=== PATIENT | female | born 1985 | race Caucasian/White ===

== ENCOUNTER 2016-11-08 09:14 | Emergency (ER) ==
[2016-11-08 09:18] VITALS: BP 174/111; TEMP 97.9; BMI 37.2
[2016-11-08] MEDS ORDERED: DUONEB NEB STA (09:24)
[2016-11-08] MEDS ORDERED: DECADRON 4 MG/ML SDV IM STA (09:24)
--- NOTE | 2016-11-08 09:29 | ED.PDOC ---
General ED Provider: Dr. PRATIBHA SANCHEZ-ER Chief Complaint: Cough Stated Complaint: my sinuses are draining and i am coughing Time Seen by Physician: 09:15 Mode of Arrival: Walk-In Information Source: Patient Exam Limitations: No limitations Primary Care Provider: MELQUIADES TEAGUE Nursing and Triage Documentation Reviewed and Agree: Yes Respiratory Complaint Exam - Respiratory Complaint/Exam Onset/Duration: 3 days Symptoms Are: Still present Timing: Constant Initial Severity: Mild Current Severity: Mild Location: Nose, Chest Character: Reports: Productive cough Aggravating: Reports: URI Alleviating: Reports: None Associated Signs and Symptoms: Reports: Wheezing, URI, Nasal congestion, Sinus discomfort, Sore throat. Denies: Rapid breathing, Dyspnea, Fever, Chills, Chest pain, Pleuritic chest pain, Hemoptysis, Dizziness, Calf pain, Calf swelling, Edema, Hoarseness, Vomiting, Weight loss, Decreased oral intake, Increased thirst, Increased appetite, Increased urination History of Healthcare-Acquired Pneumonia: No Related Surgical History: Reports: None Pulmonary Embolism Risk Factors: None Cardiac Risk Factors: Reports: None Pseudomonas Risk Factors: Reports: None Tuberculosis Risk Factors: Reports: None Status Asthmaticus Risk Factors: Reports: None Home Oxygen Use: No Recent Stress Test: No Recent Echo/LV Function: No Current Antibiotic Use: No Current Asthma Medication Use: No Respiratory Distress: None Inadequate Respiratory Effort: No Dysphagia Present: No Stridor Present: No JVD Present: No Accessory Muscle Use: No Retractions: Not Present Diminished Breath Sounds: No Sinus Tenderness: Maxillary Grunting Respirations: No Kussmaul Respirations: No Differential Diagnoses: Bronchitis, Sinusitis Review of Systems - Review Of Systems Constitutional: Reports: No symptoms Eyes: Reports: No symptoms Ears, Nose, Mouth, Throat: Reports: Nose discharge Respiratory: Reports: Cough Cardiac: Reports: No symptoms GI: Reports: No symptoms : Reports: No symptoms Musculoskeletal: Reports: No symptoms Skin: Reports: No symptoms Neurological: Reports: No symptoms Endocrine: Reports: No symptoms Hematologic/Lymphatic: Reports: No symptoms All Other Systems: Reviewed and Negative Past Medical History - Past Medical History Previously Healthy: Yes Endocrine: Reports: None Cardiovascular: Reports: None Respiratory: Reports: None Hematological: Reports: None Gastrointestinal: Reports: None Genitourinary: Reports: None Neuro/Psych: Reports: None Musculoskeletal: Reports: None Cancer: Reports: None Last Menstrual Period: last month - Surgical History General Surgical History: Reports: Tubal ligation, Cholecystectomy, Tonsillectomy - Family History Family History: Reports: None - Social History Smoking Status: Current some day smoker, Light tobacco smoker Hx Substance Use: No Alcohol Screening: None Lives: With family Physical Exam - Physical Exam Appearance: Well-appearing, No pain distress, Well-nourished Eyes: EILEEN, EOMI, Conjunctiva clear ENT: Rhinorrhea Neck: Supple Respiratory: Rhonchi Cardiovascular: RRR, Pulses normal, No rub, No murmur GI/: Soft, Nontender, No masses, Bowel sounds normal, No Organomegaly Musculoskeletal: Normal strength, ROM intact, No edema, No calf tenderness Skin: Warm, Dry, Normal color Neurological: Sensation intact, Motor intact, Reflexes intact, Cranial nerves intact, Alert, Oriented Psychiatric: Affect appropriate, Mood appropriate Interpretation - Radiology Interpretation Radiology Interpretation By: ED Physician Radiology Results: Negative Exam Interpreted: CXR Re-Evaluation - Re-Evaluation Time of Re-Evaluation: 09:37 Status: Improved Vital Signs Stable: Yes Pain Level: 0 Appearance: NAD Lungs: Clear Skin: Warm and Dry Neuro: Alert and Oriented X3 CV: RRR Critical Care Note - Critical Care Note Total Time (mins): 0 Course - Course Orders, Labs, Meds: Orders Category Date Time Status NEBULIZER TREATMENT Stat CARDIO 11/08/16 09:24 Ordered Dexamethasone 4 mg/ml Inj [Decadron 4 mg/ml Sdv] MEDS 11/08/16 09:24 Discontinued 4 mg IM ONCE STA Ipratropium/Albuterol Neb [Duoneb] MEDS 11/08/16 09:24 Discontinued 1 vial NEB ONCE STA CXR [CHEST, 2 VIEWS PA & LAT] Stat RADS 11/08/16 09:24 Taken Medications Discontinued Medications Generic Name Dose Route Start Last Admin Trade Name Freq PRN Reason Stop Dose Admin Albuterol/Ipratropium 1 vial 11/08/16 09:24 Duoneb NEB 11/08/16 09:25 ONCE STA Dexamethasone Sodium Phosphate 4 mg 11/08/16 09:24 11/08/16 09:33 Decadron 4 Mg/Ml Sdv IM 11/08/16 09:25 4 mg ONCE STA Administration Vital Signs: Temp Pulse Resp BP Pulse Ox 11/08/16 09:14 97.9 F 80 20 174/111 H 98 Departure - Departure Time of Disposition: 09:40 Disposition: HOME SELF-CARE Discharge Problem: Bronchitis Sinusitis Qualifiers: Sinusitis location: unspecified location Chronicity: acute Recurrence: not specified as recurrent Qualifier Code: (J01.90) Acute sinusitis, unspecified Instructions: Sinusitis (ED) Condition: Good Pt referred to PMD for follow-up: Yes Additional Instructions: augmentin 875mg bid x 10 days--medrol dose pack==f/u with pcsp Allergies/Adverse Reactions: Allergies codeine [Codeine] Adverse Reaction (Verified 11/08/16 09:18) Vomiting Sulfa (Sulfonamide Antibiotics) Adverse Reaction (Verified 11/08/16 09:18) Anaphylaxis olives Allergy (Severe, Uncoded 10/02/15 23:21) rash, N/V, SWELLING Home Medications: Ambulatory Orders Fexofenadine HCl [Ange Allergy] 60 mg PO DAILY PRN 12/25/15 Levonorgestrel-Ethin Estradiol [Quasense 0.15-0.03 Mg Tablet] 1 each PO d Disposition Discussed With: Patient, Family
--- NOTE | 2016-11-08 09:45 | DI ---
EXAM: Chest two view, frontal and lateral views. HISTORY: Cough. COMPARISON: 01/24/2012. FINDINGS: The heart size is normal. There is no pulmonary vascular congestion. The lungs are jason r. No pleural effusion or pneumothorax is seen. No acute osseous abnormality identified. Since prior study, there has been no significant interval change. IMPRESSION: No acute cardiopulmonary process.
== END 2016-11-08 09:49 | disposition home or self-care (01) ==
LOC: ED 09:14
DX: J40 Bronchitis, not specified as acute or chronic (principal); J01.90 Acute sinusitis, unspecified; F17.210 Nicotine dependence, cigarettes, uncomplicated
CPT/HCPCS: 94640; 96372; 99282

== ENCOUNTER 2017-02-01 10:06 | Outpatient (CLI) ==
[2013-04-16 02:38] VITALS: TEMP 97.8
[2017-02-01 10:27] LABS: BASOPHILS # (AUTO) 0.1 K/uL (0-0.2); EOSINOPHILS # (AUTO) 0.2 K/ul (0.0-0.7); EOSINOPHILS % (AUTO) 2.1 % (0.0-7.0); HEMATOCRIT 35.9 % (37.0-47.0); HEMOGLOBIN 12.1 g/dl (12.0-16.0); IMMATURE GRANULOCYTE % (AUTO) 0.2 % (0.0-5.0); LYMPHOCYTES # (AUTO) 2.2 K/uL (0.60-3.4); LYMPHOCYTES % (AUTO) 27.1 (10.0-50.0); MEAN CORPUSCULAR HEMOGLOBIN 30.1 pg (27.0-31.0); MEAN CORPUSCULAR HGB CONC 33.7 (31.8-35.4); MEAN CORPUSCULAR VOLUME 89.3 fl (81.0-99.0); MONOCYTES # (AUTO) 0.5 K/uL (0.4-2.0); NEUTROPHILS # (AUTO) 5.2 K/ul (2.0-6.9); NEUTROPHILS % (AUTO) 63.6; PLATELET COUNT 240 10^3/uL (140-440); RED BLOOD COUNT 4.02 10^6/ul (4.20-5.40); WHITE BLOOD COUNT 8.12 K/ul (4.6-10.2)
[2017-02-01 10:46] LABS: ALBUMIN 3.5 g/dL (3.4-5.0); ALBUMIN/GLOBULIN RATIO 1.06; ANION GAP 11.2; BILIRUBIN,TOTAL 0.35 mg/dL (0.00-1.20); BUN/CREATININE RATIO 18.42; CALCIUM 8.6 mg/dL (8.2-10.2); CREATININE 0.76 mg/dL (0.60-1.30); POTASSIUM 4.2 mmol/L (3.5-5.10); TOTAL PROTEIN 6.8 g/dL (6.4-8.2)
[2017-02-01 10:57] LABS: ERYTHROCYTE SEDIMENTATION RATE 39 mm/hr (0-20); ESR INTERNAL QC INTERNAL QC VALID
[2017-02-01 13:39] LABS: BILIRUBIN,URINE Negative (NEGATIVE); KETONES,URINE Negative (NEGATIVE); LEUKOCYTE ESTERASE ,URINE 1+ (NEGATIVE); NITRITE,URINE Negative (NEGATIVE); PH,URINE 5.5 (5-9); PROTEIN,URINE Negative (NEGATIVE); URINE, BLOOD Trace-intact (NEGATIVE)
[2017-02-01 13:45] LABS: ADD URINE MICROSCOPIC YES; BACTERIA,URINE 1+ (NOT PRESENT)
[2017-02-01 15:36] LABS: FERRITIN 13.61 ng/mL (4.63-204.00)
== END 2017-02-01 10:07 | disposition home or self-care (01) ==
LOC: CAR 10:06
PROVIDERS: ATTEND Nurse Practitioner Family
DX: D64.9 Anemia, unspecified (principal); R70.0 Elevated erythrocyte sedimentation rate; M79.89 Other specified soft tissue disorders; M79.604 Pain in right leg
CPT/HCPCS: 36415; 80053; 81001; 82607; 82728; 83540; 83550; 83880; 84466; 85025; 85651; 86140; 87086; 93005; 93010

== ENCOUNTER 2017-02-05 09:11 | Outpatient (CLI) ==
[2013-04-16 02:38] VITALS: TEMP 97.8
[2017-02-09 07:52] LABS: RHEUMATOID ARTHRITIS FACTOR < 10.0 IU/mL (0.0-13.9)
[2017-02-09 07:53] LABS: ANTI-NUCLEAR ANTIBODY SCREEN Negative (Negative)
== END 2017-02-05 09:12 | disposition home or self-care (01) ==
LOC: LAB 09:11
PROVIDERS: ATTEND Nurse Practitioner Family
DX: M25.50 Pain in unspecified joint (principal); R79.82 Elevated C-reactive protein (CRP)
CPT/HCPCS: 36415; 86038; 86430

== ENCOUNTER 2017-02-25 12:34 | Outpatient (CLI) | payer OTHER ==
[2013-04-16 02:38] VITALS: TEMP 97.8
--- NOTE | 2017-03-01 15:06 | US ---
/EXAM/> Bilateral venous duplex with venous insufficiency testing. HISTORY: Bilateral lower extremity edema and swelling. Bilateral lower extremity discoloration. TECHNIQUE: Bilateral venous duplex , with mapping, measurement and reflux testing of the bilateral greater and small saphenous veins. FINDINGS: The bilateral common femoral, profunda femoral, femoral and popliteal veins demonstrate n ormal compression, augmentation and normal flow on color Doppler. There is no evidence of DVT. The right greater saphenous vein at its origin, proximal thigh, midthigh, distal thigh, proximal gautam f, midcalf and distal calf measure: 1.0, 0.6, 0.5, 0.3, 0.7, 0.3, 0.2 centimeters in diameter resp ectively . There is insufficiency and reflux detected within the right greater saphenous vein, zak uring 748 milliseconds in the mid calf. The right small saphenous vein at its origin, proximal calf, midcalf and distal calf measures: 0.4, 0.4, 0.4, 0.2 centimeters in diameter respectively. There is reflux and insufficiency detected wi thin the right small saphenous vein, measuring 755 milliseconds within the mid calf. There is no so nographically detected reflux in the right small saphenous vein. The left greater saphenous vein at its origin, proximal thigh, midthigh, distal thigh and proximal c siena measure: 0.8, 0.9, 0.7, 0.5, 0.3, 0.3, 0.3 centimeters in diameter respectively. There is no son ographically detected reflux identified within the left greater saphenous vein. The left small saphenous vein at its origin, proximal calf, midcalf and distal calf measure: 0.3, 0.7, 0.3, 0.6 centimeters in diameter respectively. There is no sonographically detected reflux in the left small saphenous vein. IMPRESSION: 1. No deep venous thrombosis of the bilateral lower extremities. 2. Dilatation, reflux and insufficiency in the right greater saphenous and small saphenous veins. 3. Dilatation of the left greater and small saphenous veins, however, no sonographically detected re flux was identified on this exam.
== END 2017-02-25 12:35 | disposition home or self-care (01) ==
LOC: RAD 12:34
PROVIDERS: ATTEND Nurse Practitioner Family
DX: M79.605 Pain in left leg (principal); M79.604 Pain in right leg

== ENCOUNTER 2017-03-06 19:52 | Emergency (ER) | payer OTHER ==
[2017-03-06 20:05] VITALS: BMI 40.6
[2017-03-06] MEDS ORDERED: MOTRIN PO STA (20:26)
--- NOTE | 2017-03-06 20:59 | ED.PDOC ---
General ED Provider: Dr. SHELBY MARROQUIN Chief Complaint: Fall Stated Complaint: patients states she fell on her Knee about 2 hours ago. Able to bear weight but has alot of pain. Time Seen by Physician: 20:56 Mode of Arrival: Walk-In Information Source: Patient Exam Limitations: No limitations Primary Care Provider: MELQUIADES TEAGUE Nursing and Triage Documentation Reviewed and Agree: Yes Musculoskeletal Complaint Exam - Knee Pain Complaint/Exam Mechanism of Injury: Reports: Trauma Onset/Duration: 2 horus ago Symptoms Are: Still present Onset of Pain: Reports: Immediate Initial Severity: Moderate Current Severity: Moderate Location: Reports: Discrete (Left keen worse on inferior aspect of the knee. ) Character: Reports: Aching, Throbbing Alleviating: Reports: Position Aggravating: Reports: Movement, Weight bearing, Prolonged standing, Stairs Associated Signs and Symptoms: Reports: Swelling, Bruising Able to Bear Weight: Yes Related History: Denies: Similar episode, Occupational injury Septic Arthritis Risk Factors: Reports: None Gout Risk Factors: Reports: None Related Surgical History: Reports: Left Knee Knee Findings: Present: Swelling, Ecchymosis, Tenderness, Limited range of motion Tenderness: Present: Pre-patellar Orlando Test Positive: No Ankit Test Positive: No Limited Range of Motion: Present: Passive Knee Picture: 1 - swelling and tenderness Differential Diagnoses: Abrasion, Closed Fracture, Sprain, Strain Review of Systems - Review Of Systems Constitutional: Reports: No symptoms Eyes: Reports: No symptoms Ears, Nose, Mouth, Throat: Reports: No symptoms Respiratory: Reports: No symptoms Cardiac: Reports: No symptoms GI: Reports: No symptoms : Reports: No symptoms Musculoskeletal: Reports: Joint pain Skin: Reports: No symptoms Neurological: Reports: No symptoms Endocrine: Reports: No symptoms Hematologic/Lymphatic: Reports: No symptoms All Other Systems: Reviewed and Negative Past Medical History - Past Medical History Previously Healthy: Yes Endocrine: Reports: None Cardiovascular: Reports: None Respiratory: Reports: None Hematological: Reports: None Gastrointestinal: Reports: None Genitourinary: Reports: None Neuro/Psych: Reports: None Musculoskeletal: Reports: None Cancer: Reports: None Last Menstrual Period: 2 months ago - Surgical History General Surgical History: Reports: Tubal ligation, Cholecystectomy, Tonsillectomy - Family History Family History: Reports: None - Social History Smoking Status: Current some day smoker, Light tobacco smoker Hx Substance Use: No Alcohol Screening: None - Immunizations Tetanus Shot up to Date: Yes Physical Exam - Physical Exam Appearance: Well-appearing, Obese Pain Distress: Moderate Eyes: EILEEN, EOMI, Conjunctiva clear ENT: Nose normal, Oropharynx normal Neck: Supple Respiratory: Airway patent, Breath sounds clear, Breath sounds equal, Respirations nonlabored Cardiovascular: RRR, Pulses normal, No rub, No murmur Musculoskeletal: Limited ROM, Edema Skin: Warm, Dry, Normal color Neurological: Motor intact, Alert, Oriented Psychiatric: Anxious Critical Care Note - Critical Care Note Total Time (mins): 0 Course - Course Orders, Labs, Meds: Orders Category Date Time Status Ice [ED APPLY ICE AFFECTED AREA] .ONCE EMERGENCY 03/06/17 20:27 Active Ibuprofen [Motrin] MEDS 03/06/17 20:26 Discontinued 600 mg PO ONCE STA KNEE, LEFT 4 VIEWS Stat RADS 03/06/17 20:27 Taken Medications Discontinued Medications Generic Name Dose Route Start Last Admin Trade Name Freq PRN Reason Stop Dose Admin Ibuprofen 600 mg 03/06/17 20:26 03/06/17 20:41 Motrin PO 03/06/17 20:27 600 mg ONCE STA Administration Vital Signs: Temp Pulse Resp BP Pulse Ox 03/06/17 21:10 97.8 F 74 16 140/93 H 99 03/06/17 19:53 100 F H 83 20 145/99 H 97 Departure - Departure Time of Disposition: 21:01 Disposition: HOME SELF-CARE Discharge Problem: Falls Instructions: Knee Pain (ED), Contusion in Adults (ED) Condition: Stable Pt referred to PMD for follow-up: Yes Additional Instructions: Take Ibuprofen as needed for pain Follow up with PCP in 3 days Prescriptions: Ibuprofen [Motrin] 600 mg PO Q6H PRN #30 tablet PRN Reason: Analgesia Allergies/Adverse Reactions: Allergies codeine [Codeine] Adverse Reaction (Verified 03/06/17 20:05) Vomiting Sulfa (Sulfonamide Antibiotics) Adverse Reaction (Verified 03/06/17 20:05) Anaphylaxis olives Allergy (Severe, Uncoded 04/29/17 20:05) rash, N/V, SWELLING Home Medications: Ambulatory Orders Levonorgestrel-Ethin Estradiol [Quasense 0.15-0.03 Mg Tablet] 1 each PO d Cetirizine HCl 10 mg PO DAILY 02/01/17 Ibuprofen [Motrin] 600 mg PO Q6H PRN #30 tablet 03/06/17 Disposition Discussed With: Patient, Family
[2017-03-06 21:11] VITALS: BP 140/93; TEMP 97.8
--- NOTE | 2017-03-07 06:11 | DI ---
EXAM: Left knee four views HISTORY: Fall, landing on theknee COMPARISON: None FINDINGS: No fracture or dislocation. Minimal retropatellar osteophyte formation. The medial, late ral, and patellofemoral compartments are normal in height. No joint effusion. Mild soft tissue swell ing anteriorly IMPERSSION: 1. No fracture dislocation. 2. Minimal patellofemoral osteoarthritis. 3. Mild soft tissue swelling anteriorly
== END 2017-03-06 21:15 | disposition home or self-care (01) ==
LOC: ED 19:52
DX: S80.02XA Contusion of left knee, initial encounter (principal); M25.562 Pain in left knee; W19.XXXA Unspecified fall, initial encounter; F17.210 Nicotine dependence, cigarettes, uncomplicated
CPT/HCPCS: 99282

== ENCOUNTER 2017-03-12 08:51 | Outpatient (CLI) ==
[2013-04-16 02:38] VITALS: TEMP 97.8
== END 2017-03-12 08:52 | disposition home or self-care (01) ==
LOC: LAB 08:51
PROVIDERS: ATTEND Nurse Practitioner Family
DX: J01.10 Acute frontal sinusitis, unspecified (principal)
CPT/HCPCS: 87651; 87804; 87880

== ENCOUNTER 2017-06-19 14:42 | Emergency (ER) ==
[2017-06-19 14:43] VITALS: BMI 37.2
[2017-06-19 14:56] VITALS: BP 153/93; TEMP 99.4
[2017-06-19] MEDS ORDERED: DECADRON 4 MG/ML SDV IM STA (15:08)
[2017-06-19] MEDS ORDERED: DUONEB NEB STA (15:08)
--- NOTE | 2017-06-19 15:10 | ED.PDOC ---
General ED Provider: Dr. CHITO PIERCE Chief Complaint: Shortness of Air Stated Complaint: Been coughing for couple days, taking inhalers not helping, now has some SOB, it is not getting better Time Seen by Physician: 15:09 Mode of Arrival: Walk-In Information Source: Patient Primary Care Provider: MELQUIADES TEAGUE Nursing and Triage Documentation Reviewed and Agree: Yes Respiratory Complaint Exam - Respiratory Complaint/Exam Symptoms Are: Still present Timing: Constant Initial Severity: Mild Current Severity: Mild Location: Chest Character: Reports: Non-productive cough Aggravating: Reports: None Alleviating: Reports: None Associated Signs and Symptoms: Reports: URI. Denies: Rapid breathing, Dyspnea, Fever, Chills, Chest pain, Pleuritic chest pain, Wheezing, Hemoptysis, Dizziness , Calf pain, Calf swelling, Edema, Nasal congestion, Hoarseness, Sinus discomfort, Vomiting, Sore throat, Weight loss, Decreased oral intake, Increased thirst, Increased appetite, Increased urination History of Healthcare-Acquired Pneumonia: No Related Surgical History: Reports: None Cardiac Risk Factors: Reports: None Pseudomonas Risk Factors: Reports: None Tuberculosis Risk Factors: Reports: None Status Asthmaticus Risk Factors: Reports: None Home Oxygen Use: No Recent Stress Test: No Recent Echo/LV Function: No Respiratory Distress: None Inadequate Respiratory Effort: No Dysphagia Present: No Stridor Present: No JVD Present: No Accessory Muscle Use: No Retractions: Not Present Diminished Breath Sounds: No Differential Diagnoses: Pneumonia, Bronchitis Review of Systems - Review Of Systems Constitutional: Reports: No symptoms Eyes: Reports: No symptoms Ears, Nose, Mouth, Throat: Reports: No symptoms Respiratory: Reports: Cough, Short of air Cardiac: Reports: No symptoms GI: Reports: No symptoms : Reports: No symptoms Musculoskeletal: Reports: No symptoms Skin: Reports: No symptoms Neurological: Reports: No symptoms Endocrine: Reports: No symptoms Hematologic/Lymphatic: Reports: No symptoms All Other Systems: Reviewed and Negative Past Medical History - Past Medical History Previously Healthy: Yes Endocrine: Reports: None Cardiovascular: Reports: None Respiratory: Reports: Asthma Hematological: Reports: None Gastrointestinal: Reports: None Genitourinary: Reports: None Neuro/Psych: Reports: None Musculoskeletal: Reports: None Cancer: Reports: None Last Menstrual Period: 1 month ago - Surgical History General Surgical History: Reports: Tubal ligation, Cholecystectomy, Tonsillectomy - Family History Family History: Reports: None - Social History Smoking Status: Former smoker, Light tobacco smoker Hx Substance Use: No Alcohol Screening: None Physical Exam - Physical Exam Appearance: Well-appearing, No pain distress, Well-nourished Eyes: EILEEN, EOMI, Conjunctiva clear ENT: Ears normal, Nose normal, Oropharynx normal Respiratory: Airway patent, Breath sounds clear, Breath sounds equal, Respirations nonlabored Cardiovascular: RRR, Pulses normal, No rub, No murmur GI/: Soft, Nontender, No masses, Bowel sounds normal, No Organomegaly Musculoskeletal: Normal strength, ROM intact, No edema, No calf tenderness Skin: Warm, Dry, Normal color Neurological: Sensation intact, Motor intact, Reflexes intact, Cranial nerves intact, Alert, Oriented Psychiatric: Affect appropriate, Mood appropriate Interpretation - Radiology Interpretation Radiology Interpretation By: ED Physician Radiology Results: Negative Exam Interpreted: CXR Critical Care Note - Critical Care Note Total Time (mins): 0 Course - Course Orders, Labs, Meds: Orders Category Date Time Status NEBULIZER TREATMENT Stat CARDIO 06/19/17 15:08 Completed Dexamethasone 4 mg/ml Inj [Decadron 4 mg/ml Sdv] MEDS 06/19/17 15:08 Discontinued 4 mg IM ONCE STA Ipratropium/Albuterol Neb [Duoneb] MEDS 06/19/17 15:08 Discontinued 1 vial NEB ONCE STA CHEST, 2 VIEWS PA & LAT Stat RADS 06/19/17 15:08 Ordered Medications Discontinued Medications Generic Name Dose Route Start Last Admin Trade Name Freq PRN Reason Stop Dose Admin Albuterol/Ipratropium 1 vial 06/19/17 15:08 06/19/17 15:20 Duoneb NEB 06/19/17 15:09 1 vial ONCE STA Administration Dexamethasone Sodium Phosphate 4 mg 06/19/17 15:08 Decadron 4 Mg/Ml Sdv IM 06/19/17 15:09 ONCE STA Vital Signs: Temp Pulse Resp BP Pulse Ox 06/19/17 14:43 99.4 F 80 20 153/93 H 99 Departure - Departure Time of Disposition: 15:15 Disposition: HOME SELF-CARE Discharge Problem: URTI (acute upper respiratory infection) Instructions: Acute Bronchitis (ED) Condition: Good Pt referred to PMD for follow-up: Yes Prescriptions: Cephalexin [Keflex] 500 mg PO Q12HR #20 capsule Prednisone 10 mg PO BIDWM #14 tablet Allergies/Adverse Reactions: Allergies codeine [Codeine] Adverse Reaction (Verified 03/06/17 20:05) Vomiting Sulfa (Sulfonamide Antibiotics) Adverse Reaction (Verified 03/06/17 20:05) Anaphylaxis olives Allergy (Severe, Uncoded 03/06/17 20:05) rash, N/V, SWELLING Home Medications: Ambulatory Orders Cephalexin [Keflex] 500 mg PO Q12HR #20 capsule 06/19/17 Ethinyl Estradiol/Drospirenone [Ana Tablet] 1 each PO DAILY 06/19/17 Fexofenadine HCl [Ange Allergy] 180 mg PO DAILY 06/19/17 Prednisone 10 mg PO BIDWM #14 tablet 06/19/17 Disposition Discussed With: Patient, Family
[2017-06-19] MEDS ORDERED: KEFLEX PO STA (15:46)
--- NOTE | 2017-06-19 15:47 | DI ---
EXAM: CHEST FRONTAL AND LATERAL VIEWS HISTORY: Cough. COMPARISON: 11/08/2016 FINDINGS: Heart size and mediastinal contour remain within normal limits. No acute infiltrates. Normal vascularity with no pleural fluid or pneumothorax. The bony thorax has no acute finding. IMPRESSION: No acute process.
== END 2017-06-19 16:00 | disposition home or self-care (01) ==
LOC: ED 14:42
DX: J06.9 Acute upper respiratory infection, unspecified (principal); F17.210 Nicotine dependence, cigarettes, uncomplicated
CPT/HCPCS: 94640; 96372; 99283

== ENCOUNTER 2017-07-23 18:32 | Emergency (ER) ==
[2017-07-23 18:36] VITALS: BP 161/109; TEMP 98.5; BMI 39.8
--- NOTE | 2017-07-23 19:27 | ED.PDOC ---
General ED Provider: Dr. PRATIBHA SANCHEZ-ER Chief Complaint: Eye Problem Stated Complaint: my eyes are itching Time Seen by Physician: 19:00 Mode of Arrival: Walk-In Information Source: Patient Exam Limitations: No limitations Primary Care Provider: MELQUIADES TEAGUE Nursing and Triage Documentation Reviewed and Agree: Yes EENT Complaint Exam - Eye Complaint/Exam Onset/Duration: 24hrs Symptoms Are: Still present Timing: Constant Initial Severity: Mild Current Severity: Mild Location: Bilateral Aggravating: Reports: None Alleviating: Reports: None Associated Signs and Symptoms: Reports: Clear drainage. Denies: Photophobia, Purulent drainage, Vision impairment Eye Surgical History: Reports: None Penetrating Injury Risk Factors: None Globe Rupture Risk Factors: None Acute Glaucoma Risk Factors: None Optic Artery Occlusion Risk Factors: None Visual Field: Normal Extraocular Movement: Normal Orbit Findings: Normal Globe Findings: Intact Lid Findings: Normal Corneal Findings: Clear Fundi: Normal Differential Diagnoses: Conjunctivitis Review of Systems - Review Of Systems Constitutional: Reports: No symptoms Eyes: Reports: Drainage, Other (itching) Ears, Nose, Mouth, Throat: Reports: No symptoms Respiratory: Reports: No symptoms Cardiac: Reports: No symptoms GI: Reports: No symptoms : Reports: No symptoms Musculoskeletal: Reports: No symptoms Skin: Reports: No symptoms Neurological: Reports: No symptoms Endocrine: Reports: No symptoms Hematologic/Lymphatic: Reports: No symptoms All Other Systems: Reviewed and Negative Past Medical History - Past Medical History Previously Healthy: Yes Endocrine: Reports: None Cardiovascular: Reports: None Respiratory: Reports: Asthma Hematological: Reports: None Gastrointestinal: Reports: None Genitourinary: Reports: None Neuro/Psych: Reports: None Musculoskeletal: Reports: None Cancer: Reports: None Last Menstrual Period: 1 month ago - Surgical History General Surgical History: Reports: Tubal ligation, Cholecystectomy, Tonsillectomy - Family History Family History: Reports: None - Social History Smoking Status: Former smoker, Light tobacco smoker Hx Substance Use: No Alcohol Screening: None Lives: With family Physical Exam - Physical Exam Appearance: Well-appearing, No pain distress, Well-nourished Eyes: EILEEN, EOMI, Conjunctiva clear ENT: Ears normal, Nose normal, Oropharynx normal Neck: Supple Respiratory: Airway patent, Breath sounds clear, Breath sounds equal, Respirations nonlabored Cardiovascular: RRR, Pulses normal, No rub, No murmur GI/: Soft, Nontender, No masses, Bowel sounds normal, No Organomegaly Musculoskeletal: Normal strength, ROM intact, No edema, No calf tenderness Skin: Warm, Dry, Normal color Neurological: Sensation intact, Motor intact, Reflexes intact, Cranial nerves intact, Alert, Oriented Psychiatric: Affect appropriate, Mood appropriate Critical Care Note - Critical Care Note Total Time (mins): 0 Course - Course Vital Signs: Temp Pulse Resp BP Pulse Ox 07/23/17 18:33 98.5 F 80 16 161/109 H 95 Departure - Departure Time of Disposition: 19:27 Disposition: HOME SELF-CARE Discharge Problem: Conjunctivitis Qualifiers: Conjunctivitis type: acute Acute conjunctivitis type: unspecified Laterality: bilateral Qualified Code(s): H10.33 - Unspecified acute conjunctivitis, bilateral Instructions: Conjunctivitis (ED) Condition: Good Pt referred to PMD for follow-up: Yes Additional Instructions: ciloxan eye drops 1 drop into the eye bid x 5 days--patanol drops 1 drop into the eyes tid x 7days--f/u eye doctor tomorrow for recheck Allergies/Adverse Reactions: Allergies codeine [Codeine] Adverse Reaction (Verified 07/23/17 18:36) Vomiting Sulfa (Sulfonamide Antibiotics) Adverse Reaction (Verified 07/23/17 18:36) Anaphylaxis olives Allergy (Severe, Uncoded 03/06/17 20:05) rash, N/V, SWELLING Home Medications: Ambulatory Orders Ethinyl Estradiol/Drospirenone [Ana Tablet] 1 each PO DAILY 06/19/17 Fexofenadine HCl [Ange Allergy] 180 mg PO DAILY 06/19/17 Disposition Discussed With: Patient
== END 2017-07-23 19:34 | disposition home or self-care (01) ==
LOC: ED 18:32
DX: H10.33 Unspecified acute conjunctivitis, bilateral (principal); F17.210 Nicotine dependence, cigarettes, uncomplicated
CPT/HCPCS: 99282

== ENCOUNTER 2017-08-04 08:52 | Outpatient (CLI) ==
[2013-04-16 02:38] VITALS: TEMP 97.8
== END 2017-08-04 08:53 | disposition home or self-care (01) ==
LOC: CAR 08:52
PROVIDERS: ATTEND Emergency Medicine
DX: R06.02 Shortness of breath (principal)

== ENCOUNTER 2017-10-04 12:40 | Outpatient (CLI) ==
[2013-04-16 02:38] VITALS: TEMP 97.8
== END 2017-10-04 12:41 | disposition home or self-care (01) ==
LOC: LAB 12:40
PROVIDERS: ATTEND Emergency Medicine
DX: J02.9 Acute pharyngitis, unspecified (principal)
CPT/HCPCS: 87651; 87880

== ENCOUNTER 2017-10-28 12:35 | Outpatient (CLI) | payer OTHER ==
[2013-04-16 02:38] VITALS: TEMP 97.8
== END 2017-10-28 12:36 | disposition home or self-care (01) ==
LOC: LAB 12:35
PROVIDERS: ATTEND Nurse Practitioner Family
DX: J02.9 Acute pharyngitis, unspecified (principal)
CPT/HCPCS: 87651; 87880

== ENCOUNTER 2018-03-29 09:31 | Outpatient (CLI) | payer OTHER ==
[2013-04-16 02:38] VITALS: TEMP 97.8
== END 2018-03-29 09:32 | disposition home or self-care (01) ==
LOC: RHC-LAB 09:31
PROVIDERS: ATTEND Emergency Medicine
DX: I87.2 Venous insufficiency (chronic) (peripheral) (principal); G43.709 Chronic migraine without aura, not intractable, without status migrainosus; E66.9 Obesity, unspecified; E78.5 Hyperlipidemia, unspecified
CPT/HCPCS: 36415; 80053; 80061; 84443; 85025

== ENCOUNTER 2018-07-02 01:15 | Emergency (ER) ==
[2018-07-02 01:29] VITALS: BP 150/98; TEMP 98.4; BMI 30.4
--- NOTE | 2018-07-02 02:48 | DI ---
Exam: Lumbar spine five views History: Back pain FINDINGS: Frontal, lateral, bilateral oblique and lumbosacral projections. Lumbar spine shows aruna l alignment. Vertebral body height is maintained. No fracture lines are suspicious bony lesions. N o degenerative change. The sacrum appears normal. Impression: Normal lumbar spine.
--- NOTE | 2018-07-02 02:50 | DI ---
Exam: Left ankle three-view History: Post traumatic ankle pain Findings / impression: No acute bony or articular abnormalities are seen. A 7 mm spurring on the pl alivia surface of the calcaneus. Negative exam otherwise.
--- NOTE | 2018-07-02 02:59 | ED.PDOC ---
General ED Provider: Dr. PRATIBHA SANCHEZ-ER Chief Complaint: Fall Stated Complaint: i twisted my ankle Time Seen by Physician: 01:20 Mode of Arrival: Walk-In Information Source: Patient Exam Limitations: No limitations [facility] and Triage Documentation Reviewed and Agree: Yes Does patient meet sepsis criteria?: No System Inflammatory Response Syndrome: Not Applicable Sepsis Protocol: For patient's 13 years and over: Temp is 96.8 and below OR 101 and greater Pulse >90 BPM Resp >20/minute Acutely Altered Mental Status Are patient's symptoms suggestive of a new infection, such as: -Pneumonia -Skin, Soft Tissue -Endocarditis -UTI -Bone, Joint Infection -Implantable Device -Acute Abdominal Infection -Wound Infection -Meningitis -Blood Stream Catheter Infection -Unknown Musculoskeletal Complaint Exam - Ankle/Foot Complaint/Exam Location of Injury: Reports: Left Mechanism of Injury: Reports: Trauma Onset/Duration: one hour Symptoms Are: Reports: Still present Onset of Pain: Reports: Immediate Initial Severity: Mild Current Severity: Mild Location: Reports: Discrete Character: Reports: Dull, Aching Aggravating: Reports: Movement, Weight bearing Able to Bear Weight: No Associated Signs and Symptoms: Reports: Swelling Tenderness: Present: Medial malleolus, Lateral malleolus Limited Range of Motion: Present: Inversion Differential Diagnosis: Sprain, Strain Review of Systems - Review Of Systems Constitutional: Reports: No symptoms Eyes: Reports: No symptoms Ears, Nose, Mouth, Throat: Reports: No symptoms Respiratory: Reports: No symptoms Cardiac: Reports: No symptoms, Lightheadedness GI: Reports: No symptoms : Reports: No symptoms Musculoskeletal: Reports: Joint pain, Joint swelling Skin: Reports: No symptoms Neurological: Reports: No symptoms Endocrine: Reports: No symptoms Hematologic/Lymphatic: Reports: No symptoms All Other Systems: Reviewed and Negative Past Medical History - Past Medical History Previously Healthy: Yes Endocrine: Reports: None Cardiovascular: Reports: None Respiratory: Reports: Asthma Hematological: Reports: None Gastrointestinal: Reports: None Genitourinary: Reports: None Neuro/Psych: Reports: None Musculoskeletal: Reports: None Cancer: Reports: None Last Menstrual Period: 3 weeks ago - Surgical History General Surgical History: Reports: Tubal ligation, Cholecystectomy, Tonsillectomy - Family History Family History: Reports: None - Social History Smoking Status: Former smoker, Light tobacco smoker Hx Substance Use: No Alcohol Screening: None - Immunizations Tetanus Shot up to Date: Yes Physical Exam - Physical Exam Appearance: Well-appearing, No pain distress, Well-nourished Eyes: EILEEN, EOMI, Conjunctiva clear ENT: Ears normal Neck: Supple Respiratory: Airway patent, Breath sounds clear, Breath sounds equal, Respirations nonlabored Cardiovascular: RRR GI/: Soft Musculoskeletal: Limited ROM Skin: Warm, Dry, Normal color Neurological: Sensation intact Psychiatric: Affect appropriate, Mood appropriate Interpretation - Radiology Interpretation Radiology Interpretation By: Radiologist Radiology Results: Negative Critical Care Note - Critical Care Note Total Time (mins): 0 Course - Course Orders, Labs, Meds: Lab Review 07/02/18 07/02/18 07/02/18 01:45 01:45 01:45 Urine Color Yellow Urine Clarity Cloudy Urine pH 5.5 Ur Specific Swiss 1.025 Urine Protein Negative Urine Glucose (UA) Negative Urine Ketones Negative Urine Blood Trace-intact Urine Nitrite Negative Urine Bilirubin Negative Urine Urobilinogen 0.2 Ur Leukocyte Esterase 2+ Urine Microscopic RBC 2-5 Urine Microscopic WBC 20-30 Ur Squamous Epith Cells 5-10 Urine Bacteria 2+ Urine Mucus Trace Urine Test Negative Urine Opiates Screen Negative Ur Oxycodone Screen Negative Urine Methadone Screen Negative Ur Propoxyphene Screen Negative Ur Barbiturates Screen Negative U Tricyclic Antidepress Negative Ur Phencyclidine Scrn Negative Ur Amphetamine Screen Negative U Methamphetamines Scrn Negative U Benzodiazepines Scrn Negative Urine Cocaine Screen Negative U Cannabinoids Screen Negative Orders Category Date Time Status UA [URINALYSIS C & S IF INDICATED] Stat LAB 07/02/18 01:45 Completed URINE CULTURE Stat LAB 07/02/18 01:45 Received URINE DRUG SCREEN (RAPID FOR ED) [DRUG SCREEN, URINE, LAB 07/02/18 01:45 Completed RAPID] Stat URINE Stat LAB 07/02/18 01:45 Completed ANKLE, LEFT MIN 3 VIEWS Stat RADS 07/02/18 01:42 Completed LUMBAR SPINE, MIN 4 VIEWS Stat RADS 07/02/18 01:43 Completed Vital Signs: Temp Pulse Resp BP Pulse Ox 07/02/18 01:18 98.4 F 87 20 150/98 H 98 Departure - Departure Time of Disposition: 02:59 Disposition: HOME SELF-CARE Discharge Problem: Ankle sprain Qualifiers: Encounter type: initial encounter Involved ligament of ankle: unspecified ligament Laterality: left Qualified Code(s): S93.402A - Sprain of unspecified ligament of left ankle, initial encounter UTI (urinary tract infection) Qualifiers: Urinary tract infection type: site unspecified Hematuria presence: without hematuria Qualified Code(s): N39.0 - Urinary tract infection, site not specified Instructions: Ankle Sprain (ED), Ankle Stirrup Splint (ED) Condition: Good Pt referred to PMD for follow-up: Yes IPMP verified?: No Additional Instructions: stay in splint---crutches---cipro 500mg bid x 7 days---toradol 10mg qid prn pain #16--f/u with pcp Allergies/Adverse Reactions: Allergies codeine [Codeine] Adverse Reaction (Verified 07/02/18 01:28) Vomiting Sulfa (Sulfonamide Antibiotics) Adverse Reaction (Verified 07/02/18 01:28) Anaphylaxis olives Allergy (Severe, Uncoded 07/02/18 01:28) rash, N/V, SWELLING Home Medications: Ambulatory Orders Cholecalciferol (Vitamin D3) [Vitamin D3] 2,000 unit PO DAILY 05/30/18 Vitamin B Complex [B Complex] 1 each PO DAILY 05/30/18 Cetirizine HCl [Zyrtec] 10 mg PO DAILY 07/02/18 Disposition Discussed With: Patient, Family
== END 2018-07-02 03:20 | disposition home or self-care (01) ==
LOC: ED 01:15
DX: S93.402A Sprain of unspecified ligament of left ankle, initial encounter (principal); N39.0 Urinary tract infection, site not specified; W19.XXXA Unspecified fall, initial encounter; F17.210 Nicotine dependence, cigarettes, uncomplicated
CPT/HCPCS: 80306; 81001; 81025; 87086; 99283